=== PATIENT | male | born 1990 | race Caucasian/White ===

== ENCOUNTER 2024-07-07 12:47 | Emergency (ER) | payer OTHER, SELFPAY ==
[2024-07-07 13:21] VITALS: BP 146/92; PULSE 82; RESP 20; TEMP 36.9; O2SAT 100; BMI 25.1
--- NOTE | 2024-07-07 13:42 | ED.GENADULT ---
HPI - General Adult General Time Seen by Provider: 13:42 Date Seen: 07/07/24 Chief complaint: Unspecified Complaint, Adult Stated complaint: concerns of heart problem, feels off Time Seen by Provider: 07/07/24 13:35 Source: patient, RN notes reviewed and old records reviewed Mode of arrival: ambulatory Limitations: no limitations Related Data Home Medications ?Medication ?Instructions ?Recorded ?Confirmed No Known Home Medications 07/07/24 07/07/24 Allergies Allergy/AdvReac Type Severity Reaction Status Date / Time No Known Drug Allergies Allergy Verified 07/07/24 13:24 Exam Const: Vital Signs, click to edit/add: Vital Signs - 24 hr 07/07/24 13:21 Temperature 98.4 F Pulse Rate [Right Pulse Oximeter] 82 Respiratory Rate 20 Blood Pressure [Ri ght Upper Arm] 146/92 H Pulse Oximetry 100 Oxygen Delivery Me thod Room Air Course Vital Signs Vital signs: Initial Vital Signs Temperature 98.4 F 07/07/24 13:21 Temperature Source Temporal Artery Scan 07/07/24 13:21 Pulse Rate 82 07/07/24 13:21 Pulse Rhythm Regular 07/07/24 13:21 Pulse Strength 3+ Normal 07/07/24 13:21 Respiratory Rate 20 07/07/24 13:21 Blood Pressure 146/92 H 07/07/24 13:21 Blood Pressure Mean 110 H 07/07/24 13:21 Blood Pressure Position Sitting 07/07/24 13:21 Pulse Oximetry 100 07/07/24 13:21 Oxygen Delivery Method Room Air 07/07/24 13:21 Vital Signs Temperature 98.4 F 07/07/24 13:21 Pulse Rate 82 07/07/24 13:21 Respiratory Rate 20 07/07/24 13:21 Blood Pressure 146/92 H 07/07/24 13:21 Pulse Oximetry 100 07/07/24 13:21 Oxygen Delivery Method Room Air 07/07/24 13:21 Temperature 98.4 F 07/07/24 13:21 Pulse Rate 82 07/07/24 13:21 Respiratory Rate 20 07/07/24 13:21 Blood Pressure 146/92 H 07/07/24 13:21 Pulse Oximetry 100 07/07/24 13:21 Oxygen Delivery Method Room Air 07/07/24 13:21 Discharge Plan Discharge Prescriptions: No Action No Known Home Medications
--- NOTE | 2024-07-07 14:38 | ED_ITS ---
HPI - General Adult General Date Seen: 07/07/24 Chief complaint: Unspecified Complaint, Adult Stated complaint: concerns of heart problem, feels off Time Seen by Provider: 07/07/24 13:35 Source: patient Mode of arrival: ambulatory Limitations: no limitations History of Present Illness HPI narrative: Patient is a 33-year-old male presenting to emergency department for an episode of left arm numbness and cramping along with a hazy sensation in his head. 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 He also states he has been having a hazy sensation in his head that has been slowly improving. He states the he has more fatigue did anything. States that his sensation seems much improved. Did have a hot flash and felt diaphoretic at that time with some nausea that has all since resolved. Has never had symptoms like this before in states she he was not getting come in until his mom spoke to him and convince him to because she has a history of strokes and she was concerned. He denies weakness, headache, vision changes, chest pain, shortness of breath, abdominal pain. States he has never been told he has a PFO. Related Data Home Medications ?Medication ?Instructions ?Recorded ?Confirmed No Known Home Medications 07/07/24 07/07/24 Allergies Allergy/AdvReac Type Severity Reaction Status Date / Time No Known Drug Allergies Allergy Verified 07/07/24 13:24 Review of Systems Status of ROS: Reports: 10 or more systems reviewed and unremarkable except as noted in History and below Exam Narrative: Exam Narrative: Const: Well-nourished, Well-developed, in no distress Eyes: PERRL, no conjunctival injection, and symmetrical lids HENT: Atraumatic external nose and ears. Moist mucous membranes. Neck: Symmetric, trachea midline, No thyromegaly. CVS: RRR, No murmurs or gallops. Peripheral pulses 2+ and equal in all extremities RESP: Unlabored respiratory effort. Clear to auscultation bilaterally. GI: Nontender/Nondistended, No rebound or guarding. MSK:Extremities w/o deformity, Normal Active ROM Skin: Warm, Dry. No rashes or lesions. Neuro: Normal Muscle tone, No focal neurological deficits. Psych: Awake, Alert, & Oriented x3. Appropriate mood and affect. Const: Vital Signs, click to edit/add: Vital Signs - 24 hr 07/07/24 13:21 Temperature 98.4 F Pulse Rate [Right Pulse Oximeter] 82 Respiratory Rate 20 Blood Pressure [Ri ght Upper Arm] 146/92 H Pulse Oximetry 100 Oxygen Delivery Me thod Room Air Course Vital Signs Vital signs: Initial Vital Signs Temperature 98.4 F 07/07/24 13:21 Temperature Source Temporal Artery Scan 07/07/24 13:21 Pulse Rate 82 07/07/24 13:21 Pulse Rhythm Regular 07/07/24 13:21 Pulse Strength 3+ Normal 07/07/24 13:21 Respiratory Rate 20 07/07/24 13:21 Blood Pressure 146/92 H 07/07/24 13:21 Blood Pressure Mean 110 H 07/07/24 13:21 Blood Pressure Position Sitting 07/07/24 13:21 Pulse Oximetry 100 07/07/24 13:21 Oxygen Delivery Method Room Air 07/07/24 13:21 Vital Signs Temperature 98.4 F 07/07/24 13:21 Pulse Rate 82 07/07/24 13:21 Respiratory Rate 20 07/07/24 13:21 Blood Pressure 146/92 H 07/07/24 13:21 Pulse Oximetry 100 07/07/24 13:21 Oxygen Delivery Method Room Air 07/07/24 13:21 Temperature 98.4 F 07/07/24 13:21 Pulse Rate 82 07/07/24 13:21 Respiratory Rate 20 07/07/24 13:21 Blood Pressure 146/92 H 07/07/24 13:21 Pulse Oximetry 100 07/07/24 13:21 Oxygen Delivery Method Room Air 07/07/24 13:21 Medical Decision Making MDM Narrative Medical decision making narrative: Patient is a male bili presenting to emergency department for multiple complaints. He was complaining about left arm numbness has since resolved and his is in station in his head that is improving. Is also fatigue. Was concerned for stroke but I do not believe symptoms are consistent with a stroke and considering his symptoms are improving I do not believe head imaging is necessary. He is new to much better at this time he states. Will do EKG and troponins for possible signs of ACS or arrhythmia. Also looking at electrolytes and CBC. Will do a COVID and flu test. Patient is not aware of any sick contacts. Lab work all returned showing no concerning abnormalities. Symptoms have mostly resolved at this time other than he still feels fatigued. I am not sure exactly was causing symptoms do not see any emergent issues that require hospitalization and further imaging. I will discharge him at this time and he is agreeable to this plan. Lab Data Labs: Lab Results 07/07/24 07/07/24 07/07/24 Range/Units 14:25 14:27 14:49 WBC 6.45 (4.50-11.00) K/uL RBC 4.97 (4.30-5.90) m/uL Hgb 15.3 (13.5-17.5) gm/dL Hct 45.6 (37.0-53.0) % MCV 92 (80-100) fL MCH 31 (26-34) pg MCHC 34 (32-36) gm/dL RDW Coeff of Cookie 12.0 (11.5-15.5) % Plt Count 183 (140-440) K/uL Neut % (Auto) 58.2 (42.0-72.0) % Lymph % (Auto) 33.0 (20-44) % Winston % (Auto) 6.4 (0.0-11.0) % Eos % (Auto) 1.6 (0.0-7.0) % Baso % (Auto) 0.3 (0.0-3.0) % Neut # (Auto) 3.76 (1.7-7.0) K/uL Lymph # (Auto) 2.13 (0.90-2.90) K/uL Winston # (Auto) 0.40 (0.00-0.90) K/UL Eos # (Auto) 0.10 (0.00-0.50) K/uL Baso # (Auto) 0.02 (0.00-0.30) K/uL Abs Immat Gran (auto) 0.03 (0.00-0.30) K/uL Imm/Tot Granulo (auto) 0.5 % Sodium 137 (135-149) mmol/L Potassium 4.1 (3.6-5.1) mmol/L Chloride 102 (96-114) mmol/L Carbon Dioxide 28 (20-32) mmol/L Anion Gap 7 (7-15) mEq/L BUN 12 (5-24) mg/dL Creatinine 0.9 (0.5-1.5) mg/dL Estimated Creat Clear 128.14 Estimated GFR 116 ml/min Glucose 91 (60-115) mg/dL Calcium 9.1 (8.4-10.6) mg/dL SARS-CoV-2 (PCR) Negative SARS-CoV-2 (Negative) Influenza Type A (PCR) Negative PCR FLU A (Negative) Influenza Type B (PCR) Negative PCR FLU B (Negative) POC Troponin I 0.01 (0.01-0.04) ng/ml ECG Data Attestation: I personally reviewed and interpreted this ECG as follows: Prior ECG tracings: not available for review Interpretation: Normal sinus rhythm with a rate of 74 beats per minute, normal intervals, normal axis, no ST or T-wave abnormalities. Discharge Plan Discharge Clinical Impression: Numbness and tingling in left arm Fatigue Qualifiers: Fatigue type: unspecified Qualified Code(s): R53.83 - Other fatigue Patient Disposition: Home, Self-Care Condition: Stable Instructions: Paresthesia (ED), Fatigue (ED) Additional Instructions: I am not sure exactly was causing symptoms but do not see any concerning findings any lab work. If you do continue to have symptoms follow-up with primary care provider. Return to emergency department for any new or worsening symptoms. Prescriptions: No Action No Known Home Medications Follow Up/Referrals: Provider,Not a Local [Primary Care Provider] - Stand Alone Forms: [employer] Info Instructions
[2024-07-07 15:03] LABS: Basophils Absolute Auto 0.02 K/uL (0.00-0.30); Basophils Percent Auto 0.3 % (0.0-3.0); Eosinophils Percent Auto 1.6 % (0.0-7.0); Hematocrit 45.6 % (37.0-53.0); Hemoglobin* 15.3 gm/dL (13.5-17.5); Immature Granulocytes Abs Auto 0.03 K/uL (0.00-0.30); Immature Granulocytes Pct Auto 0.5 %; Lymphocytes Absolute Auto 2.13 K/uL (0.90-2.90); Mean Corpuscular HGB Conc 34 gm/dL (32-36); Mean Corpuscular Hemoglobin 31 pg (26-34); Mean Corpuscular Volume 92 fL (80-100); Monocytes Percent Auto 6.4 % (0.0-11.0); Neutrophils Absolute Auto 3.76 K/uL (1.7-7.0); Neutrophils Percent Auto 58.2 % (42.0-72.0); Platelet Count* 183 K/uL (140-440); Red Blood Count 4.97 m/uL (4.30-5.90); White Blood Count* 6.45 K/uL (4.50-11.00)
[2024-07-07 15:06] LABS: Slide Review Reflex No
[2024-07-07 15:07] LABS: Troponin, Point-of-Care* 0.01 ng/ml (0.01-0.04)
[2024-07-07 15:11] LABS: PCR FLU A Negative PCR FLU A (Negative); PCR FLU B Negative PCR FLU B (Negative); SARS PCR* Negative SARS-CoV-2 (Negative)
[2024-07-07 15:18] LABS: Chloride* 102 mmol/L (96-114)
[2024-07-07 15:19] LABS: Potassium* 4.1 mmol/L (3.6-5.1); Sodium* 137 mmol/L (135-149)
[2024-07-07 15:21] LABS: Creatinine* 0.9 mg/dL (0.5-1.5); Est. Creatinine Clearance* 128.14; Estimated Glomerular Filt Rate 116 ml/min
[2024-07-07 15:22] LABS: Anion Gap 7 mEq/L (7-15); Blood Urea Nitrogen* 12 mg/dL (5-24); Calcium* 9.1 mg/dL (8.4-10.6); Carbon Dioxide* 28 mmol/L (20-32); Glucose* 91 mg/dL (60-115)
== END 2024-07-07 16:25 | disposition home or self-care (01) ==
PROVIDERS: Emergency Provider Student in an Organized Health Care Education/Training Program
DX: R20.0 Anesthesia of skin (principal); R53.83 Other fatigue
CPT/HCPCS: 36415; 80048; 84484; 85025; 87631; 93005; 99282; 99284